=== PATIENT | male | born 1940 | race Caucasian/White ===

== ENCOUNTER 2017-07-29 13:22 | Inpatient (IN) | payer OTHER ==
[~2017-07-29] VITALS: Ht 177.8 cm; Wt 144.0 kg
[2017-07-29 15:15] LABS: COMMENTS - BLOOD GASES A+C+; O2 FLOW 3 L/MIN; SITE RIGHT RADIAL
[2017-07-29 15:16] LABS: BICARBONATE 33.2 mEq/L (22-26); CARBOXY HGB 1.3 % (0-5); DEVICE NAS CAN; METHEMOGLOBIN 0.5 % (0-1.5); PCO2 63 mm Hg (35-45); PO2 64 mm Hg (80-100); TOTAL RESP RATE 22 resp/min; pH 7.33 (7.35-7.45)
[2017-07-29 15:17] LABS: BASE EXCESS 5 mEq/L (-3 to +3)
[2017-07-29 15:20] LABS: BASOPHIL (%) 0.4 % (0-1); EOSINOPHIL (%) 2.2 % (0-5); EOSINOPHIL COUNT 0.2 K/uL (0-0.3); HEMATOCRIT 45.6 % (38.0-50.0); HEMOGLOBIN 14.9 G/DL (12.5-16.6); IMMATURE GRANULOCYTE (%) 0.6 % (0.0-0.7); LYMPHOCYTE (%) 25.8 % (15-42); LYMPHOCYTE COUNT 2.2 K/uL (1.0-2.8); MCH 31.7 PG (29.0-34.0); MCHC 32.7 G/DL (30.0-36.0); MONOCYTE (%) 9.6 % (3-12); MONOCYTE COUNT 0.8 K/uL (0-0.8); NEUTROPHIL (%) 61.4 % (45-76); NEUTROPHIL COUNT 5.2 K/uL (1.8-6.4); PLATELET COUNT 307 K/uL (156-360); RBC DIS.WIDTH-CV 15.1 % (11.8-14.6); RBC DIS.WIDTH-SD 53.6 % (39-53); WHITE BLOOD COUNT 8.4 K/uL (4.1-10.2)
[2017-07-29 15:26] LABS: ALBUMIN 3.4 g/dL (3.2-4.8)
[2017-07-29 15:27] LABS: CHLORIDE 105 mEq/L (99-109); POTASSIUM 4.1 mEq/L (3.7-5.4); SODIUM 144 mEq/L (136-147)
[2017-07-29 15:29] LABS: GLUCOSE 125 mg/dL (70-99); TOTAL PROTEIN 7.1 g/dL (6.4-8.3)
[2017-07-29 15:31] LABS: TOTAL BILIRUBIN 0.5 mg/dL (0.0-1.0)
[2017-07-29 15:32] LABS: ALKALINE PHOSPHATASE 35 IU/L (3-129)
[2017-07-29 15:33] LABS: CREATININE 1.4 mg/dL (0.6-1.3); GFR ESTIMATE (CALCULATED) 52 mL/min/ (58.99-99999)
[2017-07-29 15:34] LABS: AST (GOT) 27 IU/L (2-34); UREA NITROGEN (BUN) 12 mg/dL (9-23)
[2017-07-29 15:36] LABS: ALT (GPT) 25 IU/L (3-49)
[2017-07-29 15:39] LABS: TROP-I INTERPRETATION NEGATIVE; TROPONIN-I 0.02 ng/mL (0.0-0.30)
[2017-07-29] MEDS ORDERED: LORAZEPAM0.5 MG PO (16:17)
[2017-07-29] MEDS ORDERED: ZOLPIDEM TARTRAT5 MG PO (16:17)
[2017-07-29] MEDS ORDERED: DIVALPROEX SOD500 M1 PO (16:18)
[2017-07-29] MEDS ORDERED: ESCITALOPRAM OX10 MG PO (16:19)
[2017-07-29] MEDS ORDERED: FUROSEMIDE20 MG PO (16:19)
[2017-07-29] MEDS ORDERED: METOPROLOL SUC200 MG PO (16:20)
[2017-07-29] MEDS ORDERED: AMLODIPINE BESY10 MG PO (16:20)
[2017-07-29] MEDS ORDERED: FENOFIBRATE160 M1 PO (16:20)
[2017-07-29] MEDS ORDERED: ATORVASTATIN CA80 MG PO (16:22)
[2017-07-29] MEDS ORDERED: LATUDA40 MG PO (16:22)
[2017-07-29] MEDS ORDERED: ADULTS 50+ MUL1 EACH PO (16:24)
[2017-07-29] MEDS ORDERED: FISH OIL 1,2001 EAC3 PO (16:24)
[2017-07-29] MEDS ORDERED: ADULT ASPIRIN R81 MG PO (16:25)
[2017-07-29] MEDS ORDERED: PROAIR HFA8.5 GM IH (17:59)
[2017-07-29] MEDS ORDERED: CONSTULOSE10 GM/15 M PO (18:01)
[2017-07-29 21:24] VITALS: BP 174/81
[2017-07-29 23:49] VITALS: BP 175/74
[2017-07-30 03:59] VITALS: BP 176/72
[2017-07-30 05:35] LABS: HEMATOCRIT 48.6 % (38.0-50.0); HEMOGLOBIN 14.9 G/DL (12.5-16.6); MCH 30.2 PG (29.0-34.0); MCHC 30.7 G/DL (30.0-36.0); MCV 98.4 FL (86-99); PLATELET COUNT 307 K/uL (156-360); RBC DIS.WIDTH-CV 14.7 % (11.8-14.6); RBC DIS.WIDTH-SD 53.5 % (39-53); RED BLOOD COUNT 4.94 M/uL (4.00-5.50); WHITE BLOOD COUNT 6.2 K/uL (4.1-10.2)
[2017-07-30 06:01] LABS: CHLORIDE 105 MEQ/L (99-109); CREATININE 1.3 MG/DL (0.6-1.3); GFR ESTIMATE (CALCULATED) 57 mL/min/ (58.99-99999); GLUCOSE 166 mg/dL (70-99); SODIUM 144 MEQ/L (136-147); UREA NITROGEN (BUN) 15 mg/dL (9-23)
[2017-07-30 07:57] VITALS: BP 156/69
[2017-07-30 12:26] VITALS: BP 164/74
[2017-07-30 15:48] VITALS: BP 131/62
[2017-07-30 20:00] VITALS: BP 148/72
[2017-07-31] VITALS (7 sets, daily range): BP systolic 107–174; BP diastolic 56–91
[2017-07-31 09:19] LABS: HEMOGLOBIN A1c (GLYCOHEMOGLOB) 6.4 % (Below 5.7)
[2017-08-01 04:00] VITALS: BP 180/82
[2017-08-01 05:08] VITALS: BP 173/78
[2017-08-01 07:38] VITALS: BP 214/97
[2017-08-01 11:42] VITALS: BP 192/82
[2017-08-01 19:46] VITALS: BP 147/66
[2017-08-02] VITALS (7 sets, daily range): BP systolic 138–179; BP diastolic 79–91
[2017-08-02 05:45] LABS: BASOPHIL (%) 0.3 % (0-1); EOSINOPHIL (%) 0.4 % (0-5); HEMATOCRIT 44.7 % (38.0-50.0); HEMOGLOBIN 14.5 G/DL (12.5-16.6); IMMATURE GRANULOCYTE (%) 0.4 % (0.0-0.7); LYMPHOCYTE (%) 26.3 % (15-42); MCH 30.9 PG (29.0-34.0); MCHC 32.4 G/DL (30.0-36.0); MCV 95.1 FL (86-99); MONOCYTE (%) 9.6 % (3-12); MONOCYTE COUNT 0.7 K/uL (0-0.8); NEUTROPHIL COUNT 4.7 K/uL (1.8-6.4); PLATELET COUNT 276 K/uL (156-360); RBC DIS.WIDTH-CV 14.3 % (11.8-14.6); RBC DIS.WIDTH-SD 49.6 % (39-53); WHITE BLOOD COUNT 7.5 K/uL (4.1-10.2)
[2017-08-02 06:17] LABS: CHLORIDE 99 MEQ/L (99-109); CREATININE 1.3 MG/DL (0.6-1.3); GFR ESTIMATE (CALCULATED) 57 mL/min/ (58.99-99999); GLUCOSE 97 mg/dL (70-99); SODIUM 143 MEQ/L (136-147)
[2017-08-02 06:19] LABS: POTASSIUM 3.9 MEQ/L (3.7-5.4); UREA NITROGEN (BUN) 29 mg/dL (9-23)
[2017-08-03 03:43] VITALS: BP 152/90
[2017-08-03 06:15] LABS: BASOPHIL (%) 0.2 % (0-1); EOSINOPHIL (%) 0.2 % (0-5); HEMATOCRIT 45.3 % (38.0-50.0); HEMOGLOBIN 14.8 G/DL (12.5-16.6); IMMATURE GRANULOCYTE (%) 0.5 % (0.0-0.7); LYMPHOCYTE (%) 25.4 % (15-42); LYMPHOCYTE COUNT 2.1 K/uL (1.0-2.8); MCH 30.8 PG (29.0-34.0); MCHC 32.7 G/DL (30.0-36.0); MCV 94.2 FL (86-99); MONOCYTE (%) 7.2 % (3-12); MONOCYTE COUNT 0.6 K/uL (0-0.8); NEUTROPHIL (%) 66.5 % (45-76); NEUTROPHIL COUNT 5.4 K/uL (1.8-6.4); PLATELET COUNT 302 K/uL (156-360); RBC DIS.WIDTH-CV 14.2 % (11.8-14.6); RBC DIS.WIDTH-SD 48.5 % (39-53); RED BLOOD COUNT 4.81 M/uL (4.00-5.50); WHITE BLOOD COUNT 8.2 K/uL (4.1-10.2)
[2017-08-03 06:40] LABS: CHLORIDE 97 MEQ/L (99-109); CREATININE 1.4 MG/DL (0.6-1.3); GFR ESTIMATE (CALCULATED) 52 mL/min/ (58.99-99999); GLUCOSE 110 mg/dL (70-99); POTASSIUM 3.8 MEQ/L (3.7-5.4); SODIUM 141 MEQ/L (136-147); UREA NITROGEN (BUN) 27 mg/dL (9-23)
[2017-08-03 07:06] VITALS: BP 140/89
[2017-08-03 11:34] VITALS: BP 154/80
[2017-08-03 15:44] VITALS: BP 137/63
[2017-08-03 19:55] VITALS: BP 160/79
[2017-08-03 23:51] VITALS: BP 155/71
[2017-08-04 03:23] VITALS: BP 169/77
[2017-08-04 06:03] LABS: BASOPHIL (%) 0.5 % (0-1); EOSINOPHIL COUNT 0.1 K/uL (0-0.3); HEMATOCRIT 47.4 % (38.0-50.0); HEMOGLOBIN 15.7 G/DL (12.5-16.6); IMMATURE GRANULOCYTE (%) 0.6 % (0.0-0.7); LYMPHOCYTE COUNT 2.5 K/uL (1.0-2.8); MCH 31.2 PG (29.0-34.0); MCHC 33.1 G/DL (30.0-36.0); MONOCYTE (%) 9.3 % (3-12); MONOCYTE COUNT 0.8 K/uL (0-0.8); NEUTROPHIL (%) 59.6 % (45-76); NEUTROPHIL COUNT 5.1 K/uL (1.8-6.4); PLATELET COUNT 305 K/uL (156-360); RBC DIS.WIDTH-CV 14.4 % (11.8-14.6); RBC DIS.WIDTH-SD 49.9 % (39-53); RED BLOOD COUNT 5.04 M/uL (4.00-5.50); WHITE BLOOD COUNT 8.6 K/uL (4.1-10.2)
[2017-08-04 06:26] LABS: CHLORIDE 97 MEQ/L (99-109); CREATININE 1.5 MG/DL (0.6-1.3); GFR ESTIMATE (CALCULATED) 48 mL/min/ (58.99-99999); GLUCOSE 124 mg/dL (70-99); POTASSIUM 3.8 MEQ/L (3.7-5.4); SODIUM 140 MEQ/L (136-147); UREA NITROGEN (BUN) 35 mg/dL (9-23)
[2017-08-04 07:51] VITALS: BP 146/75
[2017-08-04 16:37] VITALS: BP 138/75
[2017-08-05 00:53] VITALS: BP 131/78
[2017-08-05 05:58] LABS: BASOPHIL (%) 0.2 % (0-1); EOSINOPHIL (%) 1.5 % (0-5); EOSINOPHIL COUNT 0.1 K/uL (0-0.3); HEMATOCRIT 47.3 % (38.0-50.0); HEMOGLOBIN 15.4 G/DL (12.5-16.6); IMMATURE GRANULOCYTE (%) 0.7 % (0.0-0.7); LYMPHOCYTE (%) 28.3 % (15-42); LYMPHOCYTE COUNT 2.6 K/uL (1.0-2.8); MCH 30.4 PG (29.0-34.0); MCHC 32.6 G/DL (30.0-36.0); MCV 93.5 FL (86-99); MONOCYTE (%) 7.9 % (3-12); MONOCYTE COUNT 0.7 K/uL (0-0.8); NEUTROPHIL (%) 61.4 % (45-76); NEUTROPHIL COUNT 5.7 K/uL (1.8-6.4); PLATELET COUNT 303 K/uL (156-360); RBC DIS.WIDTH-CV 14.3 % (11.8-14.6); RBC DIS.WIDTH-SD 49.5 % (39-53); RED BLOOD COUNT 5.06 M/uL (4.00-5.50); WHITE BLOOD COUNT 9.3 K/uL (4.1-10.2)
[2017-08-05 06:43] LABS: CHLORIDE 94 MEQ/L (99-109); CREATININE 2.3 MG/DL (0.6-1.3); GFR ESTIMATE (CALCULATED) 29 mL/min/ (58.99-99999); GLUCOSE 130 mg/dL (70-99); POTASSIUM 3.9 MEQ/L (3.7-5.4); SODIUM 138 MEQ/L (136-147); UREA NITROGEN (BUN) 51 mg/dL (9-23)
[2017-08-05 08:08] VITALS: BP 116/60
[2017-08-05 15:19] VITALS: BP 110/59
[2017-08-05 23:51] VITALS: BP 156/75
[2017-08-06 06:09] LABS: BASOPHIL (%) 0.3 % (0-1); EOSINOPHIL (%) 0.8 % (0-5); EOSINOPHIL COUNT 0.1 K/uL (0-0.3); HEMOGLOBIN 14.5 G/DL (12.5-16.6); IMMATURE GRANULOCYTE (%) 1.3 % (0.0-0.7); LYMPHOCYTE (%) 29.8 % (15-42); LYMPHOCYTE COUNT 2.6 K/uL (1.0-2.8); MCH 30.8 PG (29.0-34.0); MCHC 32.2 G/DL (30.0-36.0); MCV 95.5 FL (86-99); MONOCYTE COUNT 0.7 K/uL (0-0.8); NEUTROPHIL (%) 59.8 % (45-76); NEUTROPHIL COUNT 5.3 K/uL (1.8-6.4); PLATELET COUNT 261 K/uL (156-360); RBC DIS.WIDTH-CV 14.3 % (11.8-14.6); RBC DIS.WIDTH-SD 50.4 % (39-53); RED BLOOD COUNT 4.71 M/uL (4.00-5.50); WHITE BLOOD COUNT 8.8 K/uL (4.1-10.2)
[2017-08-06 06:28] LABS: CHLORIDE 97 MEQ/L (99-109); GFR ESTIMATE (CALCULATED) 35 mL/min/ (58.99-99999); GLUCOSE 106 mg/dL (70-99); POTASSIUM 3.7 MEQ/L (3.7-5.4); SODIUM 138 MEQ/L (136-147); UREA NITROGEN (BUN) 50 mg/dL (9-23)
[2017-08-06 07:59] VITALS: BP 148/69
[2017-08-06 09:34] LABS: COMMENTS - BLOOD GASES NAC+; DEVICE CANNULA; O2 FLOW 3 L/MIN; SITE LR
[2017-08-06 09:35] LABS: BASE EXCESS 5.3 mEq/L (-3 to +3); BICARBONATE 32.4 mEq/L (22-26); CARBOXY HGB 1.1 % (0-5); METHEMOGLOBIN 0.6 % (0-1.5); PCO2 56 mm Hg (35-45); PO2 63 mm Hg (80-100); pH 7.37 (7.35-7.45)
[2017-08-06 16:00] VITALS: BP 130/70
[2017-08-06 16:05] VITALS: BP 120/60
[2017-08-07] VITALS: BP 121/58
[2017-08-07 06:41] LABS: CHLORIDE 101 MEQ/L (99-109); GFR ESTIMATE (CALCULATED) 48 mL/min/ (58.99-99999); GLUCOSE 102 mg/dL (70-99); SODIUM 138 MEQ/L (136-147); UREA NITROGEN (BUN) 36 mg/dL (9-23)
[2017-08-07 06:44] LABS: CREATININE 1.5 MG/DL (0.6-1.3)
[2017-08-07 08:55] VITALS: BP 140/62
[2017-08-07] MEDS ORDERED: CEFDINIR300 MG PO (15:11)
[2017-08-07] MEDS ORDERED: APRESOLINE100 MG PO (15:12)
[2017-08-07] MEDS ORDERED: VALSARTAN160 MG PO (15:12)
[2017-08-07] MEDS ORDERED: HYDROCHLOROTHIA25 MG PO (15:13)
[2017-08-07] MEDS ORDERED: NOVOLOG 10100 UNITS/ SC (15:15)
[2017-08-07] MEDS ORDERED: TYLENOL REGULA325 MG PO (15:21)
[2017-08-07] MEDS ORDERED: ASPIRIN325 MG PO (15:23)
[2017-08-07 15:39] VITALS: BP 135/70
== END 2017-08-07 18:52 | DRG 189 ==
LOC: EME 13:22 → 5SOUTH 20:14 → EDOF 20:14 → ENRESERV 20:15 → 5SOUTH 20:58
PROVIDERS: Emergency Medicine; Hospitalist; Internal Medicine; Internal Medicine Pulmonary Disease; Student in an Organized Health Care Education/Training Program
PROC: 5A09357 Assistance with Respiratory Ventilation, Less than 24 Consecutive Hours, Continuous Positive Airway Pressure (ICD-10-PCS; principal; 2017-07-30)
DX: J96.21 Acute and chronic respiratory failure with hypoxia (principal); J96.22 Acute and chronic respiratory failure with hypercapnia; J44.1 Chronic obstructive pulmonary disease with (acute) exacerbation; N17.9 Acute kidney failure, unspecified; J98.11 Atelectasis; L03.115 Cellulitis of right lower limb; S82.402A Unspecified fracture of shaft of left fibula, initial encounter for closed fracture; W01.0XXA Fall on same level from slipping, tripping and stumbling without subsequent striking against object, initial encounter; E66.2 Morbid (severe) obesity with alveolar hypoventilation; E78.5 Hyperlipidemia, unspecified; E87.2 Acidosis; F41.9 Anxiety disorder, unspecified; I13.0 Hypertensive heart and chronic kidney disease with heart failure and stage 1 through stage 4 chronic kidney disease, or unspecified chronic kidney disease; I50.32 Chronic diastolic (congestive) heart failure; N18.9 Chronic kidney disease, unspecified; E11.22 Type 2 diabetes mellitus with diabetic chronic kidney disease; F31.9 Bipolar disorder, unspecified; R00.1 Bradycardia, unspecified; I25.10 Atherosclerotic heart disease of native coronary artery without angina pectoris; Z68.42 Body mass index [BMI] 45.0-49.9, adult; Z87.891 Personal history of nicotine dependence
CPT/HCPCS: 36600; 71045; 71275; 80048; 80053; 80202; 82803; 82948; 83036; 83605; 83880; 84484; 85025; 85027; 87040; 93005; 93306; 93970; 94010; 94640; 94640 76; 94660; 94760; 94799; 97530 GP; 99202; 99281; 99285; J0456; J0696; J1644; J1815; J2920; J2930; J3370; J7030; J7512; S0028